=== PATIENT | male | born 1955 | race African-American/Black ===

== ENCOUNTER 2019-07-05 18:25 | Inpatient (IN) | payer MEDICARE, MEDICAID ==
[~2019-07-05] VITALS: Ht 157.5 cm; Wt 66.8 kg
[2019-07-05 18:39] VITALS: BP_SYST 81
[2019-07-05 19:42] LABS: BASOPHILS % (AUTO) 0.4 % (0.0-2.0); EOSINOPHILS % (AUTO) 0.2 % (0.0-4.0); HEMATOCRIT 40.6 % (36-54); HEMOGLOBIN 13.6 g/dL (14.0-18.0); LYMPHOCYTES # (AUTO) 0.6 K/uL (1.0-5.5); LYMPHOCYTES % (AUTO) 7.2 % (20.5-51.5); MEAN CORPUSCULAR HEMOGLOBIN 31 pg (27-31); MEAN CORPUSCULAR HGB CONC 34 % (32-36); MEAN CORPUSCULAR VOLUME 93 fL (79.0-98.0); MONOCYTES # (AUTO) 0.7 K/uL (0.0-1.0); MONOCYTES % (AUTO) 8.3 % (1.7-9.3); NEUTROPHILS # (AUTO) 6.7 K/uL (1.8-7.7); NEUTROPHILS % (AUTO) 83.9 % (40.0-70.0); PLATELET COUNT (AUTO) 246 K/uL (130-430); RED BLOOD CELL COUNT(AUTO) 4.35 MIL/uL (4.2-6.2); RED CELL DISTRIBUTION WIDTH 18.3 % (9.0-15.0)
[2019-07-05 19:46] LABS: CALCIUM 9.6 mg/dL (8.4-11.0); CREATININE 6.4 mg/dL (0.55-1.30); POTASSIUM 4.9 mmol/L (3.5-5.1)
[2019-07-05 19:48] LABS: INR 1.1 (0.80-1.20); PROTHROMBIN TIME 11.3 SECS (9.5-12.5)
[2019-07-05 20:00] LABS: ALBUMIN 2.9 g/dL (3.4-4.8); TOTAL BILIRUBIN 0.5 mg/dL (0.0-1.0)
[2019-07-05] MEDS ORDERED: NACL 0.9% 1,000 ML IV ONE (20:30)
[2019-07-05 21:37] LABS: BILIRUBIN,URINE NEGATIVE (NEGATIVE); BLOOD, URINE 2+ (NEGATIVE); CLARITY/URINE HAZY (CLEAR); COLOR,URINE YELLOW (YELLOW); GLUCOSE,URINE NEGATIVE (NEGATIVE); KETONES,URINE NEGATIVE (NEGATIVE); LEUKOCYTE ESTERASE ,URINE NEGATIVE (NEGATIVE); NITRITE, URINE NEGATIVE (NEGATIVE); PROTEIN URINE 1+ (NEGATIVE); UROBILINOGEN,URINE 0.2 (0.2-1.0)
[2019-07-05 22:15] LABS: BACTERIA,URINE FEW /HPF (None Seen); FINE GRANULAR CASTS,URINE 0-10 /LPF (None Seen); MUCUS,URINE None Seen /LPF (None Seen); URINE AMORPHOUS URATE 1+ /HPF (None Seen); WBC,URINE 0-3 /HPF (0-3)
[2019-07-06] VITALS (24 sets, daily range): BP systolic 63–123
[2019-07-06] MEDS ORDERED: NACL 0.9% 1,000 ML IV SCH (00:36)
[2019-07-06] MEDS ORDERED: ALBUTEROL SULFATE 0.083% 2.5 MG/3 ML VIAL.NEB INH PRN (00:45)
[2019-07-06] MEDS ORDERED: ACETAMINOPHEN 325 MG TABLET PO PRN (00:45)
[2019-07-06] MEDS ORDERED: cefTRIAXone 1 GM IVPB PREMIX 50 ML IV SCH (01:00)
[2019-07-06] MEDS ORDERED: NACL 0.9% 1,000 ML IV ONE ×2 (01:15→02:00)
[2019-07-06] MEDS ORDERED: NOREPINEPHRINE 4 MG/4 ML VIAL IV ONE ×2 (02:20→09:11)
[2019-07-06] MEDS: NOREPINEPHRINE BITARTRATE 4 MG in NS 246 ML IV PRN ×4 (02:50→20:46)
[2019-07-06] MEDS ORDERED: cefTRIAXone 1 GM IVPB PREMIX 50 ML IV ONE (03:01)
[2019-07-06] MEDS ORDERED: INSULIN ASPART 100 UNITS/ML, 10 ML VIAL (NovoLOG) SUBCUT PRN (04:00)
[2019-07-06] MEDS: NACL 0.9% 1,000 ML IV SCH ×3 (04:31→17:20)
[2019-07-06 05:24] LABS: BASOPHILS % (AUTO) 0.3 % (0.0-2.0); EOSINOPHILS % (AUTO) 0.2 % (0.0-4.0); HEMOGLOBIN 11.2 g/dL (14.0-18.0); LYMPHOCYTES # (AUTO) 0.5 K/uL (1.0-5.5); LYMPHOCYTES % (AUTO) 7.1 % (20.5-51.5); MEAN CORPUSCULAR HEMOGLOBIN 31 pg (27-31); MEAN CORPUSCULAR HGB CONC 33 % (32-36); MEAN CORPUSCULAR VOLUME 94 fL (79.0-98.0); MONOCYTES # (AUTO) 0.5 K/uL (0.0-1.0); NEUTROPHILS # (AUTO) 5.9 K/uL (1.8-7.7); NEUTROPHILS % (AUTO) 85.4 % (40.0-70.0); PLATELET COUNT (AUTO) 192 K/uL (130-430); RED CELL DISTRIBUTION WIDTH 18.3 % (9.0-15.0); WHITE BLOOD COUNT (AUTO) 6.9 K/uL (4.8-10.8)
[2019-07-06 05:46] LABS: INR 1.2 (0.80-1.20); PROTHROMBIN TIME 11.6 SECS (9.5-12.5)
[2019-07-06 05:59] LABS: ALANINE AMINOTRANSFERASE 42 U/L (12-78); ANION GAP 15 (5-15); ASPARTATE AMINOTRANSFERASE 85 U/L (10-37); CALCIUM 7.9 mg/dL (8.4-11.0); CHLORIDE 102 mmol/L (98-107); CREATININE 4.95 mg/dL (0.55-1.30); POTASSIUM 3.9 mmol/L (3.5-5.1); SODIUM SERUM 134 mmol/L (136-145); THYROID STIMULATING HORMONE 1.39 uIu/mL (0.36-3.74); TOTAL BILIRUBIN 0.4 mg/dL (0.0-1.0); UREA NITROGEN, BLOOD 57 mg/dL (8-21)
[2019-07-06] MEDS ORDERED: PIPERACILLIN/TAZO 2.25G/DEX-IS 50 ML IV ONE (06:00)
[2019-07-06 06:05] LABS: GFR AFRICAN AMERICAN 15 mL/min (>90)
[2019-07-06] MEDS ORDERED: PIPERACILLIN/TAZOBACTAM 2.25 GM VIAL IV ONE (06:05)
[2019-07-06 06:06] LABS: ALBUMIN 2.2 g/dL (3.4-4.8); GLUCOSE 80 mg/dL (70-99)
[2019-07-06 06:07] LABS: CHOLESTEROL 117 mg/dL (<200); HDL CHOLESTEROL 49 mg/dL (>45); LDL CHOLESTEROL 47 mg/dL (<100); TRIGLYCERIDES 33 mg/dL (30-150)
[2019-07-06] MEDS ORDERED: HYDROCORTISONE SOD SUCC 100 MG/2 ML VIAL IVP ONE (09:30)
[2019-07-06] MEDS ORDERED: HEPARIN SODIUM,PORCINE 3000 UNITS/0.6 ML BOLUS IVP PRN (09:45)
[2019-07-06] MEDS ORDERED: HEPARIN SODIUM,PORCINE 2000 UNITS/0.4 ML BOLUS IVP PRN (09:45)
[2019-07-06] MEDS ORDERED: HEPARIN 25,000 UNITS/D5W 250ML 250 ML IV PRN (10:00)
[2019-07-06] MEDS ORDERED: HEPARIN SODIUM,PORCINE 5000 UNITS/ML VIAL IV ONE (10:00)
[2019-07-06] MEDS ORDERED: PIPERACILLIN/TAZO 3.375/DEX-IS 50 ML IV ONE (10:00)
[2019-07-06] MEDS ORDERED: COMMUNICATION ORDER XX ONE (14:15)
[2019-07-06] MEDS ORDERED: HYDROCORTISONE SOD SUCC 100 MG/2 ML VIAL IVP SCH (15:00)
[2019-07-06] MEDS: PIPERACILLIN/TAZO 2.25G/DEX-IS 50 ML IV SCH ×2 (15:08→21:51)
[2019-07-06] MEDS: HYDROCORTISONE SOD SUCC 100 MG/2 ML VIAL IVP SCH ×2 (15:08→21:48)
[2019-07-06] MEDS: THIAMINE HCL 100 MG in NS 100 ML IV SCH (17:09)
[2019-07-06] MEDS: FOLIC ACID 1 MG, MVI 10 ML in NACL 0.9% 1,000 ML IV SCH (18:10)
[2019-07-06] MEDS: EMOLLIENT COMBINATION NO.73 78 GM CREAM..G. TP SCH ×2 (21:50→21:54)
[2019-07-06] MEDS: HEPARIN SODIUM,PORCINE 5000 UNITS/ML VIAL SUBCUT SCH (21:53)
[2019-07-07] VITALS (24 sets, daily range): BP systolic 89–133
[2019-07-07] MEDS: NOREPINEPHRINE BITARTRATE 4 MG in NS 246 ML IV PRN (02:39)
[2019-07-07] MEDS: HYDROCORTISONE SOD SUCC 100 MG/2 ML VIAL IVP SCH ×4 (05:09→21:01)
[2019-07-07] MEDS: PIPERACILLIN/TAZO 2.25G/DEX-IS 50 ML IV SCH ×4 (05:10→21:01)
[2019-07-07] MEDS: NACL 0.9% 1,000 ML IV SCH ×3 (05:10→15:18)
[2019-07-07 05:41] LABS: BASOPHILS % (AUTO) 0.4 % (0.0-2.0); HEMATOCRIT 36.6 % (36-54); HEMOGLOBIN 12.1 g/dL (14.0-18.0); LYMPHOCYTES # (AUTO) 0.5 K/uL (1.0-5.5); MEAN CORPUSCULAR HEMOGLOBIN 31 pg (27-31); MEAN CORPUSCULAR HGB CONC 33 % (32-36); MEAN CORPUSCULAR VOLUME 95 fL (79.0-98.0); MONOCYTES # (AUTO) 0.3 K/uL (0.0-1.0); MONOCYTES % (AUTO) 3.1 % (1.7-9.3); NEUTROPHILS # (AUTO) 9.5 K/uL (1.8-7.7); NEUTROPHILS % (AUTO) 91.5 % (40.0-70.0); PLATELET COUNT (AUTO) 202 K/uL (130-430); RED BLOOD CELL COUNT(AUTO) 3.87 MIL/uL (4.2-6.2); RED CELL DISTRIBUTION WIDTH 18.4 % (9.0-15.0); WHITE BLOOD COUNT (AUTO) 10.4 K/uL (4.8-10.8)
[2019-07-07 06:05] LABS: ALBUMIN 2.1 g/dL (3.4-4.8); CALCIUM 8.1 mg/dL (8.4-11.0); CREATININE 3.69 mg/dL (0.55-1.30); POTASSIUM 4.4 mmol/L (3.5-5.1); TOTAL BILIRUBIN 0.5 mg/dL (0.0-1.0)
[2019-07-07] MEDS: HEPARIN SODIUM,PORCINE 5000 UNITS/ML VIAL SUBCUT SCH ×2 (10:16→21:03)
[2019-07-07] MEDS: EMOLLIENT COMBINATION NO.73 78 GM CREAM..G. TP SCH ×2 (10:16→21:04)
[2019-07-07] MEDS: FOLIC ACID 1 MG, MVI 10 ML in NACL 0.9% 1,000 ML IV SCH (17:12)
[2019-07-07] MEDS: THIAMINE HCL 100 MG in NS 100 ML IV SCH (17:13)
[2019-07-08] VITALS (24 sets, daily range): BP systolic 111–142
[2019-07-08] MEDS: 0.45% NACL 1,000 ML IV SCH ×2 (02:41→08:44)
[2019-07-08] MEDS: HYDROCORTISONE SOD SUCC 100 MG/2 ML VIAL IVP SCH ×4 (05:25→21:31)
[2019-07-08] MEDS: PIPERACILLIN/TAZO 2.25G/DEX-IS 50 ML IV SCH ×4 (05:25→21:33)
[2019-07-08 05:48] LABS: BASOPHILS % (AUTO) 0.1 % (0.0-2.0); HEMATOCRIT 27.4 % (36-54); HEMOGLOBIN 9.2 g/dL (14.0-18.0); LYMPHOCYTES # (AUTO) 0.8 K/uL (1.0-5.5); LYMPHOCYTES % (AUTO) 7.7 % (20.5-51.5); MEAN CORPUSCULAR HEMOGLOBIN 31 pg (27-31); MEAN CORPUSCULAR HGB CONC 34 % (32-36); MEAN CORPUSCULAR VOLUME 93 fL (79.0-98.0); MONOCYTES # (AUTO) 0.6 K/uL (0.0-1.0); MONOCYTES % (AUTO) 5.9 % (1.7-9.3); NEUTROPHILS # (AUTO) 8.6 K/uL (1.8-7.7); NEUTROPHILS % (AUTO) 86.3 % (40.0-70.0); PLATELET COUNT (AUTO) 137 K/uL (130-430); RED BLOOD CELL COUNT(AUTO) 2.96 MIL/uL (4.2-6.2); RED CELL DISTRIBUTION WIDTH 17.8 % (9.0-15.0)
[2019-07-08 06:13] LABS: ALBUMIN 1.8 g/dL (3.4-4.8); CALCIUM 7.5 mg/dL (8.4-11.0); CREATININE 2.99 mg/dL (0.55-1.30); POTASSIUM 3.4 mmol/L (3.5-5.1); TOTAL BILIRUBIN 0.3 mg/dL (0.0-1.0)
[2019-07-08] MEDS: EMOLLIENT COMBINATION NO.73 78 GM CREAM..G. TP SCH ×2 (08:37→21:32)
[2019-07-08] MEDS: HEPARIN SODIUM,PORCINE 5000 UNITS/ML VIAL SUBCUT SCH ×2 (08:39→21:34)
[2019-07-08] MEDS: NOREPINEPHRINE BITARTRATE 4 MG in NS 246 ML IV PRN (08:41)
[2019-07-08] MEDS ORDERED: ALLOPURINOL 100 MG TABLET (ZYLOPRIM) PO ONE (09:00)
[2019-07-08] MEDS ORDERED: FUROSEMIDE 40 MG/4 ML VIAL IVP ONE (09:30)
[2019-07-08] MEDS ORDERED: KETOROLAC TROMETHAMINE 15 MG VIAL IVP PRN (11:00)
[2019-07-08] MEDS ORDERED: COLCHICINE 0.6 MG TABLET PO ONE (11:15)
[2019-07-08] MEDS ORDERED: ACETAMINOPHEN 650 MG SUPP.RECT RC PRN (11:15)
[2019-07-08] MEDS: FOLIC ACID 1 MG, MVI 10 ML in NACL 0.9% 1,000 ML IV SCH (15:20)
[2019-07-08] MEDS: THIAMINE HCL 100 MG in NS 100 ML IV SCH (15:20)
[2019-07-08] MEDS: D5W 1,000 ML IV SCH (21:37)
[2019-07-09] VITALS (19 sets, daily range): BP systolic 138–167
[2019-07-09] MEDS: PIPERACILLIN/TAZO 2.25G/DEX-IS 50 ML IV SCH ×4 (04:29→21:46)
[2019-07-09] MEDS: HYDROCORTISONE SOD SUCC 100 MG/2 ML VIAL IVP SCH ×3 (04:29→18:22)
[2019-07-09] MEDS: D5W 1,000 ML IV SCH ×2 (05:35→13:24)
[2019-07-09 06:11] LABS: BASOPHILS % (AUTO) 0.3 % (0.0-2.0); EOSINOPHILS % (AUTO) 0.1 % (0.0-4.0); HEMATOCRIT 29.2 % (36-54); HEMOGLOBIN 9.7 g/dL (14.0-18.0); LYMPHOCYTES # (AUTO) 1.2 K/uL (1.0-5.5); LYMPHOCYTES % (AUTO) 10.7 % (20.5-51.5); MEAN CORPUSCULAR HEMOGLOBIN 31 pg (27-31); MEAN CORPUSCULAR HGB CONC 33 % (32-36); MEAN CORPUSCULAR VOLUME 93 fL (79.0-98.0); MONOCYTES # (AUTO) 0.6 K/uL (0.0-1.0); MONOCYTES % (AUTO) 5.1 % (1.7-9.3); NEUTROPHILS # (AUTO) 9.1 K/uL (1.8-7.7); NEUTROPHILS % (AUTO) 83.8 % (40.0-70.0); PLATELET COUNT (AUTO) 99 K/uL (130-430); RED BLOOD CELL COUNT(AUTO) 3.13 MIL/uL (4.2-6.2); RED CELL DISTRIBUTION WIDTH 18.4 % (9.0-15.0); WHITE BLOOD COUNT (AUTO) 10.9 K/uL (4.8-10.8)
[2019-07-09 06:23] LABS: ALBUMIN 1.9 g/dL (3.4-4.8); CALCIUM 8.2 mg/dL (8.4-11.0); CREATININE 3.11 mg/dL (0.55-1.30); POTASSIUM 3.3 mmol/L (3.5-5.1); TOTAL BILIRUBIN 0.5 mg/dL (0.0-1.0)
[2019-07-09] MEDS: EMOLLIENT COMBINATION NO.73 78 GM CREAM..G. TP SCH ×2 (08:54→21:28)
[2019-07-09] MEDS: HEPARIN SODIUM,PORCINE 5000 UNITS/ML VIAL SUBCUT SCH ×2 (08:56→21:24)
[2019-07-09] MEDS: COLCHICINE 0.6 MG TABLET PO SCH (08:58)
[2019-07-09] MEDS: ALLOPURINOL 100 MG TABLET (ZYLOPRIM) PO SCH (08:59)
[2019-07-09] MEDS ORDERED: COLCHICINE 0.6 MG TABLET PO SCH (09:00)
[2019-07-09] MEDS ORDERED: ALLOPURINOL 100 MG TABLET (ZYLOPRIM) PO SCH (09:00)
[2019-07-09] MEDS ORDERED: FLU VACC QS2019-20 36MOS UP/PF 60 MCG/0.5 ML SYRINGE I.M. PRN (10:00)
[2019-07-09] MEDS: MENTHOL/ZINC OXIDE 113 GM OINT. TP PRN (11:26)
[2019-07-09] MEDS ORDERED: BARIUM SULFATE 135 ML SUSP.RECON (E-Z-HD) PO ONE (13:46)
[2019-07-09] MEDS: FOLIC ACID 1 MG, MVI 10 ML in NACL 0.9% 1,000 ML IV SCH (15:59)
[2019-07-09] MEDS: THIAMINE HCL 100 MG in NS 100 ML IV SCH (16:00)
[2019-07-09] MEDS ORDERED: POTASSIUM CHLORIDE 20 MEQ in NS 250 ML IV ONE (22:00)
[2019-07-09] MEDS ORDERED: KCL IV ONE (23:10)
[2019-07-09] MEDS ORDERED: KCL 20 mEq in 100 mL (PREMIX) 100 ML IV ONE (23:12)
[2019-07-10] MEDS: PIPERACILLIN/TAZO 2.25G/DEX-IS 50 ML IV SCH ×4 (06:38→21:06)
[2019-07-10] MEDS: HYDROCORTISONE SOD SUCC 100 MG/2 ML VIAL IVP SCH ×2 (06:39→18:34)
[2019-07-10] MEDS: D5W 1,000 ML IV SCH ×2 (06:48→20:18)
[2019-07-10 07:54] VITALS: BP_SYST 138
[2019-07-10 07:56] LABS: BASOPHILS # (AUTO) 0.1 K/uL (0.0-0.2); BASOPHILS % (AUTO) 0.6 % (0.0-2.0); EOSINOPHILS % (AUTO) 0.1 % (0.0-4.0); HEMOGLOBIN 8.8 g/dL (14.0-18.0); LYMPHOCYTES # (AUTO) 1.5 K/uL (1.0-5.5); LYMPHOCYTES % (AUTO) 14.6 % (20.5-51.5); MEAN CORPUSCULAR HEMOGLOBIN 31 pg (27-31); MEAN CORPUSCULAR HGB CONC 33 % (32-36); MEAN CORPUSCULAR VOLUME 94 fL (79.0-98.0); MONOCYTES # (AUTO) 0.8 K/uL (0.0-1.0); MONOCYTES % (AUTO) 7.8 % (1.7-9.3); NEUTROPHILS % (AUTO) 76.9 % (40.0-70.0); PLATELET COUNT (AUTO) 82 K/uL (130-430); RED BLOOD CELL COUNT(AUTO) 2.87 MIL/uL (4.2-6.2); RED CELL DISTRIBUTION WIDTH 18.6 % (9.0-15.0); WHITE BLOOD COUNT (AUTO) 10.4 K/uL (4.8-10.8)
[2019-07-10 08:31] LABS: ALBUMIN 1.9 g/dL (3.4-4.8); CALCIUM 8.3 mg/dL (8.4-11.0); CREATININE 2.93 mg/dL (0.55-1.30); POTASSIUM 3.2 mmol/L (3.5-5.1); TOTAL BILIRUBIN 0.6 mg/dL (0.0-1.0)
[2019-07-10] MEDS: COLCHICINE 0.6 MG TABLET PO SCH (08:32)
[2019-07-10] MEDS: ALLOPURINOL 100 MG TABLET (ZYLOPRIM) PO SCH (08:32)
[2019-07-10] MEDS: EMOLLIENT COMBINATION NO.73 78 GM CREAM..G. TP SCH ×2 (09:24→20:16)
[2019-07-10] MEDS: HEPARIN SODIUM,PORCINE 5000 UNITS/ML VIAL SUBCUT SCH (09:24)
[2019-07-10 11:51] LABS: INR 1.1 (0.80-1.20); PROTHROMBIN TIME 10.7 SECS (9.5-12.5)
[2019-07-10] MEDS ORDERED: KCL 20 mEq in 100 mL (PREMIX) 100 ML IV ONE (12:15)
[2019-07-10 12:35] VITALS: BP_SYST 142
[2019-07-10] MEDS: MENTHOL/ZINC OXIDE 113 GM OINT. TP PRN (14:03)
[2019-07-10 16:15] VITALS: BP_SYST 155
[2019-07-10] MEDS: FOLIC ACID 1 MG, MVI 10 ML in NACL 0.9% 1,000 ML IV SCH (16:34)
[2019-07-10] MEDS: THIAMINE HCL 100 MG in NS 100 ML IV SCH (16:39)
[2019-07-10 20:00] VITALS: BP_SYST 148
[2019-07-11 01:45] VITALS: BP_SYST 138
[2019-07-11] MEDS: PIPERACILLIN/TAZO 2.25G/DEX-IS 50 ML IV SCH ×4 (04:09→22:25)
[2019-07-11] MEDS: HYDROCORTISONE SOD SUCC 100 MG/2 ML VIAL IVP SCH ×2 (06:16→18:05)
[2019-07-11 07:48] LABS: BASOPHILS % (AUTO) 0.3 % (0.0-2.0); EOSINOPHILS # (AUTO) 0.1 K/uL (0.0-0.4); EOSINOPHILS % (AUTO) 0.9 % (0.0-4.0); HEMATOCRIT 23.6 % (36-54); HEMOGLOBIN 7.9 g/dL (14.0-18.0); LYMPHOCYTES # (AUTO) 1.3 K/uL (1.0-5.5); LYMPHOCYTES % (AUTO) 15.2 % (20.5-51.5); MEAN CORPUSCULAR HEMOGLOBIN 31 pg (27-31); MEAN CORPUSCULAR HGB CONC 34 % (32-36); MEAN CORPUSCULAR VOLUME 92 fL (79.0-98.0); MONOCYTES # (AUTO) 0.6 K/uL (0.0-1.0); MONOCYTES % (AUTO) 7.4 % (1.7-9.3); NEUTROPHILS # (AUTO) 6.4 K/uL (1.8-7.7); NEUTROPHILS % (AUTO) 76.2 % (40.0-70.0); RED BLOOD CELL COUNT(AUTO) 2.58 MIL/uL (4.2-6.2); RED CELL DISTRIBUTION WIDTH 18.8 % (9.0-15.0); WHITE BLOOD COUNT (AUTO) 8.4 K/uL (4.8-10.8)
[2019-07-11 08:00] LABS: PLATELET COUNT (AUTO) 42 K/uL (130-430)
[2019-07-11 08:09] VITALS: BP_SYST 136
[2019-07-11] MEDS: EMOLLIENT COMBINATION NO.73 78 GM CREAM..G. TP SCH ×2 (09:37→22:27)
[2019-07-11] MEDS: D5W 1,000 ML IV SCH (09:39)
[2019-07-11 11:25] VITALS: BP_SYST 138
[2019-07-11 15:20] VITALS: BP_SYST 140
[2019-07-11] MEDS: THIAMINE HCL 100 MG in NS 100 ML IV SCH (15:25)
[2019-07-11] MEDS: FOLIC ACID 1 MG, MVI 10 ML in NACL 0.9% 1,000 ML IV SCH (17:07)
[2019-07-11 20:00] VITALS: BP_SYST 134
[2019-07-12] VITALS (7 sets, daily range): BP systolic 121–151
[2019-07-12] MEDS: D5W 1,000 ML IV SCH ×2 (00:15→05:06)
[2019-07-12] MEDS: PIPERACILLIN/TAZO 2.25G/DEX-IS 50 ML IV SCH (03:29)
[2019-07-12] MEDS: HYDROCORTISONE SOD SUCC 100 MG/2 ML VIAL IVP SCH ×2 (06:07→18:21)
[2019-07-12 07:49] LABS: BASOPHILS % (AUTO) 0.4 % (0.0-2.0); EOSINOPHILS # (AUTO) 0.1 K/uL (0.0-0.4); EOSINOPHILS % (AUTO) 1.2 % (0.0-4.0); HEMATOCRIT 23.6 % (36-54); HEMOGLOBIN 7.8 g/dL (14.0-18.0); LYMPHOCYTES # (AUTO) 1.1 K/uL (1.0-5.5); MEAN CORPUSCULAR HEMOGLOBIN 31 pg (27-31); MEAN CORPUSCULAR HGB CONC 33 % (32-36); MEAN CORPUSCULAR VOLUME 93 fL (79.0-98.0); MONOCYTES # (AUTO) 0.7 K/uL (0.0-1.0); MONOCYTES % (AUTO) 9.1 % (1.7-9.3); NEUTROPHILS # (AUTO) 5.9 K/uL (1.8-7.7); NEUTROPHILS % (AUTO) 75.3 % (40.0-70.0); RED BLOOD CELL COUNT(AUTO) 2.54 MIL/uL (4.2-6.2); RED CELL DISTRIBUTION WIDTH 18.7 % (9.0-15.0); WHITE BLOOD COUNT (AUTO) 7.8 K/uL (4.8-10.8)
[2019-07-12 07:51] LABS: PLATELET COUNT (AUTO) 30 K/uL (130-430)
[2019-07-12 08:05] LABS: TOTAL IRON BIND. CAPACITY 186 ug/dL (250-450)
[2019-07-12 08:08] LABS: ALBUMIN 1.8 g/dL (3.4-4.8); CREATININE 1.96 mg/dL (0.55-1.30); TOTAL BILIRUBIN 0.7 mg/dL (0.0-1.0)
[2019-07-12 08:11] LABS: HEPATITIS B CORE AB, TOTAL Negative (Negative); HEPATITIS B SURFACE AG Negative (Negative); HEPATITIS C VIRUS AB <0.1 s/co ratio (0.0-0.9)
[2019-07-12 08:14] LABS: CALCIUM 7.8 mg/dL (8.4-11.0)
[2019-07-12 08:18] LABS: POTASSIUM 2.6 mmol/L (3.5-5.1)
[2019-07-12] MEDS ORDERED: POTASSIUM CHLORIDE 40 MEQ in NS 250 ML IV ONE (09:15)
[2019-07-12] MEDS: EMOLLIENT COMBINATION NO.73 78 GM CREAM..G. TP SCH ×2 (09:36→20:18)
[2019-07-12] MEDS: INSULIN REGULAR, HUMAN 100 UNITS/ML, 10 ML VIAL (humuLIN R) SUBCUT PRN (13:03)
[2019-07-12] MEDS: FOLIC ACID 1 MG, MVI 10 ML in NACL 0.9% 1,000 ML IV SCH (16:43)
[2019-07-12] MEDS: THIAMINE HCL 100 MG in NS 100 ML IV SCH (16:45)
[2019-07-13 01:56] VITALS: BP_SYST 135
[2019-07-13] MEDS: HYDROCORTISONE SOD SUCC 100 MG/2 ML VIAL IVP SCH ×2 (06:17→18:12)
[2019-07-13] MEDS: D5W 1,000 ML IV SCH ×2 (06:18→20:25)
[2019-07-13 07:47] LABS: CALCIUM 7.2 mg/dL (8.4-11.0); CREATININE 1.26 mg/dL (0.55-1.30); EOSINOPHILS # (AUTO) 0.1 K/uL (0.0-0.4); LYMPHOCYTES % (AUTO) 14.6 % (20.5-51.5); MEAN CORPUSCULAR HEMOGLOBIN 31 pg (27-31); MEAN CORPUSCULAR HGB CONC 34 % (32-36); MEAN CORPUSCULAR VOLUME 90 fL (79.0-98.0); MONOCYTES # (AUTO) 0.5 K/uL (0.0-1.0); MONOCYTES % (AUTO) 6.5 % (1.7-9.3); NEUTROPHILS # (AUTO) 5.4 K/uL (1.8-7.7); NEUTROPHILS % (AUTO) 77.9 % (40.0-70.0); PLATELET COUNT (AUTO) 56 K/uL (130-430); RED CELL DISTRIBUTION WIDTH 18.4 % (9.0-15.0)
[2019-07-13 07:49] LABS: HEMOGLOBIN 6.9 g/dL (14.0-18.0)
[2019-07-13 07:50] LABS: HEMATOCRIT 20.3 % (36-54)
[2019-07-13 07:58] LABS: POTASSIUM 2.6 mmol/L (3.5-5.1)
[2019-07-13 08:00] VITALS: BP_SYST 113
[2019-07-13 08:06] LABS: FOLATE (FOLIC ACID) >20.0 ng/mL (>3.0)
[2019-07-13] MEDS ORDERED: POTASSIUM CHLORIDE 20 MEQ TAB.PRT.SR PO ONE (08:30)
[2019-07-13] MEDS ORDERED: POTASSIUM CHLORIDE 30 MEQ in NS 250 ML IV ONE ×2 (08:30→12:30)
[2019-07-13 09:06] LABS: FOLATE (FOLIC ACID) >20.0 ng/mL (>3.0)
[2019-07-13 09:35] LABS: PROTHROMBIN TIME 10.5 SECS (9.5-12.5)
[2019-07-13 10:03] LABS: RED BLOOD CELL COUNT(AUTO) 2.24 MIL/uL (4.2-6.2)
[2019-07-13 10:10] LABS: FERRITIN 423 ng/mL (30-400)
[2019-07-13] MEDS: EMOLLIENT COMBINATION NO.73 78 GM CREAM..G. TP SCH ×2 (10:18→21:09)
[2019-07-13 11:10] VITALS: BP_SYST 117
[2019-07-13] MEDS: INSULIN REGULAR, HUMAN 100 UNITS/ML, 10 ML VIAL (humuLIN R) SUBCUT PRN ×2 (11:43→20:53)
[2019-07-13] MEDS ORDERED: FUROSEMIDE 20 MG/2 ML VIAL IVP ONE (14:45)
[2019-07-13 15:32] VITALS: BP_SYST 129
[2019-07-13 20:00] VITALS: BP_SYST 140
[2019-07-13] MEDS: ONDANSETRON HCL 4 MG/2 ML VIAL IVP PRN (20:00)
[2019-07-14] MEDS: ONDANSETRON HCL 4 MG/2 ML VIAL IVP PRN ×2 (01:42→06:37)
[2019-07-14] MEDS: THIAMINE HCL 100 MG in NS 100 ML IV SCH ×2 (01:46→16:08)
[2019-07-14] MEDS: FOLIC ACID 1 MG, MVI 10 ML in NACL 0.9% 1,000 ML IV SCH ×2 (02:59→16:08)
[2019-07-14 03:50] VITALS: BP_SYST 143
[2019-07-14] MEDS: HYDROCORTISONE SOD SUCC 100 MG/2 ML VIAL IVP SCH ×2 (06:29→18:53)
[2019-07-14] MEDS ORDERED: KCL 40 mEq in 100 mL (PREMIX) 100 ML IV PRN (07:30)
[2019-07-14 08:00] VITALS: BP_SYST 156
[2019-07-14 09:00] LABS: BASOPHILS % (AUTO) 0.4 % (0.0-2.0); EOSINOPHILS # (AUTO) 0.1 K/uL (0.0-0.4); EOSINOPHILS % (AUTO) 0.7 % (0.0-4.0); HEMATOCRIT 24.8 % (36-54); HEMOGLOBIN 8.4 g/dL (14.0-18.0); LYMPHOCYTES # (AUTO) 0.9 K/uL (1.0-5.5); LYMPHOCYTES % (AUTO) 10.4 % (20.5-51.5); MEAN CORPUSCULAR HEMOGLOBIN 31 pg (27-31); MEAN CORPUSCULAR HGB CONC 34 % (32-36); MEAN CORPUSCULAR VOLUME 91 fL (79.0-98.0); MONOCYTES # (AUTO) 0.4 K/uL (0.0-1.0); NEUTROPHILS % (AUTO) 83.5 % (40.0-70.0); PLATELET COUNT (AUTO) 86 K/uL (130-430); RED BLOOD CELL COUNT(AUTO) 2.72 MIL/uL (4.2-6.2); RED CELL DISTRIBUTION WIDTH 17.1 % (9.0-15.0); WHITE BLOOD COUNT (AUTO) 8.3 K/uL (4.8-10.8)
[2019-07-14 09:33] LABS: ALBUMIN 2.3 g/dL (3.4-4.8); CALCIUM 7.6 mg/dL (8.4-11.0); CREATININE 1.25 mg/dL (0.55-1.30); TOTAL BILIRUBIN 0.6 mg/dL (0.0-1.0)
[2019-07-14 09:39] LABS: POTASSIUM 2.8 mmol/L (3.5-5.1)
[2019-07-14] MEDS: POTASSIUM CHLORIDE 40 MEQ in NS 250 ML IV PRN (09:42)
[2019-07-14] MEDS: EMOLLIENT COMBINATION NO.73 78 GM CREAM..G. TP SCH ×2 (09:43→20:14)
[2019-07-14] MEDS ORDERED: KCL 40mEq in D5/0.45NS 1000 mL 1,000 ML IV SCH (10:15)
[2019-07-14] MEDS: D5W 1,000 ML IV SCH (11:48)
[2019-07-14 12:45] VITALS: BP_SYST 139
[2019-07-14 16:30] VITALS: BP_SYST 157
[2019-07-14 20:15] VITALS: BP_SYST 153
[2019-07-15 00:11] VITALS: BP_SYST 156
[2019-07-15] MEDS: D5W 1,000 ML IV SCH (06:06)
[2019-07-15] MEDS: HYDROCORTISONE SOD SUCC 100 MG/2 ML VIAL IVP SCH ×2 (06:06→18:40)
[2019-07-15 06:15] LABS: BASOPHILS % (AUTO) 0.1 % (0.0-2.0); EOSINOPHILS % (AUTO) 0.4 % (0.0-4.0); HEMATOCRIT 24.7 % (36-54); HEMOGLOBIN 8.4 g/dL (14.0-18.0); LYMPHOCYTES # (AUTO) 1.2 K/uL (1.0-5.5); LYMPHOCYTES % (AUTO) 18.4 % (20.5-51.5); MEAN CORPUSCULAR HEMOGLOBIN 31 pg (27-31); MEAN CORPUSCULAR HGB CONC 34 % (32-36); MEAN CORPUSCULAR VOLUME 91 fL (79.0-98.0); MONOCYTES # (AUTO) 0.5 K/uL (0.0-1.0); MONOCYTES % (AUTO) 7.8 % (1.7-9.3); NEUTROPHILS # (AUTO) 4.9 K/uL (1.8-7.7); NEUTROPHILS % (AUTO) 73.3 % (40.0-70.0); PLATELET COUNT (AUTO) 143 K/uL (130-430); RED BLOOD CELL COUNT(AUTO) 2.71 MIL/uL (4.2-6.2); RED CELL DISTRIBUTION WIDTH 17.4 % (9.0-15.0); WHITE BLOOD COUNT (AUTO) 6.6 K/uL (4.8-10.8)
[2019-07-15 07:02] LABS: ALBUMIN 2.3 g/dL (3.4-4.8); CALCIUM 7.5 mg/dL (8.4-11.0); CREATININE 1.11 mg/dL (0.55-1.30); POTASSIUM 3.3 mmol/L (3.5-5.1); TOTAL BILIRUBIN 0.4 mg/dL (0.0-1.0)
[2019-07-15] MEDS ORDERED: POTASSIUM CHLORIDE 40 MEQ in D5W 250 ML IV PRN (08:00)
[2019-07-15] MEDS ORDERED: MAGNESIUM SULFATE 50 ML IV ONE (08:15)
[2019-07-15 09:00] VITALS: BP_SYST 124
[2019-07-15] MEDS: EMOLLIENT COMBINATION NO.73 78 GM CREAM..G. TP SCH ×2 (09:02→20:48)
[2019-07-15] MEDS: POTASSIUM CHLORIDE 40 MEQ in NS 250 ML IV PRN (09:18)
[2019-07-15] MEDS: INSULIN REGULAR, HUMAN 100 UNITS/ML, 10 ML VIAL (humuLIN R) SUBCUT PRN (11:52)
[2019-07-15 12:00] VITALS: BP_SYST 130
[2019-07-15 14:25] VITALS: BP_SYST 130
[2019-07-15] MEDS: ONDANSETRON HCL 4 MG/2 ML VIAL IVP PRN (14:48)
[2019-07-15 15:10] LABS: ALPHA-1-ANTITRYPSIN, S 172 mg/dL (101-187); HAPTOGLOBIN 225 mg/dL (34-200)
[2019-07-15] MEDS: THIAMINE HCL 100 MG in NS 100 ML IV SCH (15:14)
[2019-07-15 15:46] VITALS: BP_SYST 123
[2019-07-15] MEDS: FOLIC ACID 1 MG, MVI 10 ML in NACL 0.9% 1,000 ML IV SCH (16:10)
[2019-07-15] MEDS ORDERED: METOCLOPRAMIDE HCL 10 MG/2 ML VIAL IVP PRN (16:15)
[2019-07-15 20:15] VITALS: BP_SYST 133
[2019-07-16 00:49] VITALS: BP_SYST 142
[2019-07-16] MEDS: D5W 1,000 ML IV SCH (01:38)
[2019-07-16] MEDS: HYDROCORTISONE SOD SUCC 100 MG/2 ML VIAL IVP SCH (06:34)
[2019-07-16 08:40] VITALS: BP_SYST 130
[2019-07-16 08:40] LABS: CALCIUM 7.8 mg/dL (8.4-11.0); CREATININE 1.06 mg/dL (0.55-1.30); POTASSIUM 3.4 mmol/L (3.5-5.1)
[2019-07-16] MEDS: EMOLLIENT COMBINATION NO.73 78 GM CREAM..G. TP SCH (09:32)
[2019-07-16 11:22] VITALS: BP_SYST 156
[2019-07-16 15:32] VITALS: BP_SYST 158
[2019-07-16] MEDS: FOLIC ACID 1 MG, MVI 10 ML in NACL 0.9% 1,000 ML IV SCH (15:59)
[2019-07-16] MEDS: THIAMINE HCL 100 MG in NS 100 ML IV SCH (16:00)
[2019-07-17 00:17] VITALS: BP_SYST 149
[2019-07-17 08:14] LABS: BASOPHILS # (AUTO) 0.1 K/uL (0.0-0.2); BASOPHILS % (AUTO) 0.8 % (0.0-2.0); EOSINOPHILS # (AUTO) 0.2 K/uL (0.0-0.4); EOSINOPHILS % (AUTO) 1.7 % (0.0-4.0); HEMATOCRIT 24.2 % (36-54); HEMOGLOBIN 8.4 g/dL (14.0-18.0); LYMPHOCYTES # (AUTO) 1.7 K/uL (1.0-5.5); LYMPHOCYTES % (AUTO) 18.7 % (20.5-51.5); MEAN CORPUSCULAR HEMOGLOBIN 32 pg (27-31); MEAN CORPUSCULAR HGB CONC 35 % (32-36); MEAN CORPUSCULAR VOLUME 92 fL (79.0-98.0); MONOCYTES # (AUTO) 0.6 K/uL (0.0-1.0); NEUTROPHILS # (AUTO) 6.6 K/uL (1.8-7.7); NEUTROPHILS % (AUTO) 71.8 % (40.0-70.0); PLATELET COUNT (AUTO) 292 K/uL (130-430); RED BLOOD CELL COUNT(AUTO) 2.63 MIL/uL (4.2-6.2); RED CELL DISTRIBUTION WIDTH 18.3 % (9.0-15.0); WHITE BLOOD COUNT (AUTO) 9.3 K/uL (4.8-10.8)
[2019-07-17 08:50] VITALS: BP_SYST 189
[2019-07-17] MEDS ORDERED: HYDROCORTISONE SOD SUCC 100 MG/2 ML VIAL IVP SCH (09:00)
[2019-07-17] MEDS ORDERED: cloNIDine HCL 0.1 MG TABLET PO ONE (09:45)
[2019-07-17] MEDS: EMOLLIENT COMBINATION NO.73 78 GM CREAM..G. TP SCH (10:02)
[2019-07-17] MEDS: D5W 1,000 ML IV SCH (12:06)
[2019-07-17 12:39] VITALS: BP_SYST 129
[2019-07-17 17:22] VITALS: BP_SYST 139
[2019-07-17 18:24] VITALS: BP_SYST 132
== END 2019-07-17 19:05 | DRG 871 ==
LOC: SED 18:25 → STU 07-06 00:14 → SIC 07-06 02:08 → STU 07-09 15:49 → SMU 07-15 15:42
PROVIDERS: ADMIT Internal Medicine Hospice and Palliative Medicine; ATTEND Internal Medicine Hospice and Palliative Medicine
PROC: 05JYXZZ Inspection of Upper Vein, External Approach (ICD-10-PCS; 2019-07-07)
PROC: 05HN33Z Insertion of Infusion Device into Left Internal Jugular Vein, Percutaneous Approach (ICD-10-PCS; 2019-07-07)
PROC: B544ZZA Ultrasonography of Left Jugular Veins, Guidance (ICD-10-PCS; 2019-07-07)
PROC: 30233N1 Transfusion of Nonautologous Red Blood Cells into Peripheral Vein, Percutaneous Approach (ICD-10-PCS; principal; 2019-07-13)
PROC: 30233R1 Transfusion of Nonautologous Platelets into Peripheral Vein, Percutaneous Approach (ICD-10-PCS; 2019-07-13)
PROC: 02HV33Z Insertion of Infusion Device into Superior Vena Cava, Percutaneous Approach (ICD-10-PCS; 2019-07-13)
PROC: B548ZZA Ultrasonography of Superior Vena Cava, Guidance (ICD-10-PCS; 2019-07-13)
DX: A41.9 Sepsis, unspecified organism (principal); R65.21 Severe sepsis with septic shock; G92 Toxic encephalopathy; N17.0 Acute kidney failure with tubular necrosis; I26.99 Other pulmonary embolism without acute cor pulmonale; J18.9 Pneumonia, unspecified organism; E87.1 Hypo-osmolality and hyponatremia; J98.11 Atelectasis; N17.9 Acute kidney failure, unspecified; E86.0 Dehydration; D63.8 Anemia in other chronic diseases classified elsewhere; D69.6 Thrombocytopenia, unspecified; E11.22 Type 2 diabetes mellitus with diabetic chronic kidney disease; E83.42 Hypomagnesemia; E87.6 Hypokalemia; F10.20 Alcohol dependence, uncomplicated; R13.10 Dysphagia, unspecified; N18.9 Chronic kidney disease, unspecified; M10.9 Gout, unspecified; F19.10 Other psychoactive substance abuse, uncomplicated; R68.0 Hypothermia, not associated with low environmental temperature; R31.9 Hematuria, unspecified; N40.0 Benign prostatic hyperplasia without lower urinary tract symptoms; Z79.899 Other long term (current) drug therapy; Z87.891 Personal history of nicotine dependence
CPT/HCPCS: 36415; 36600; 70450-TC; 70551; 71045; 74230; 76700-TC; 76770; 80048; 80053; 80061; 81000-TC; 82103; 82140-TC; 82272; 82607; 82728; 82746; 82803-TC; 82962; 83010; 83540-TC; 83550-TC; 83605; 83615-TC; 83880; 84443-TC; 84484; 84550-TC; 85025; 85044-TC; 85379; 85384-TC; 85610-TC; 85730-TC; 86022; 86704; 86708; 86803; 86886; 86900; 86901; 86920; 87040-TC; 87081; 87086; 87340; 92610-GN; 92611-GN; 93005; 93306; 93880; 93923; 94640; 99285; C1751; C1769; G0378; J0696; J1644; J1720; J1815; J1940; J2405; J2543; J2765; J3411; J3475; J3480; J3490; J7030; J7040; J7050; J7060; J7613; P9021; P9034